=== PATIENT | male | born 1990 | race Caucasian/White ===

== ENCOUNTER 2022-09-08 08:42 | Emergency (ER) | payer BC ==
[2022-09-08] MEDS ORDERED: Cetirizine 10 MG Tab PO ONE (09:39)
[2022-09-08 11:26] VITALS: BP 125/66; PULSE 87
== END 2022-09-08 11:25 | disposition home or self-care (01) ==
LOC: JD.ED 08:42
DX: L27.0 Generalized skin eruption due to drugs and medicaments taken internally (principal); T37.0X5A Adverse effect of sulfonamides, initial encounter; T36.8X5A Adverse effect of other systemic antibiotics, initial encounter; J45.909 Unspecified asthma, uncomplicated; F17.220 Nicotine dependence, chewing tobacco, uncomplicated; Z88.6 Allergy status to analgesic agent; Z91.018 Allergy to other foods; Z79.51 Long term (current) use of inhaled steroids
CPT/HCPCS: 99283; A9270